=== PATIENT | female | born 1945 | race Caucasian/White ===

== ENCOUNTER 2017-10-05 12:32 | Emergency (ER) | payer OTHER, BC ==
--- NOTE | 2017-10-05 13:22 | RAD REPORT ---
EXAM DESCRIPTION: RAD - Hand Left 3 View - 10/05/2017 1:12 pm CLINICAL HISTORY: Pain and swelling. COMPARISON: None. FINDINGS: Moderate degenerative changes at the first carpometacarpal joint. Lucency is noted the bas e of the proximal first metacarpal, most compatible with fracture. Mild subluxation at the third MCP joint is suspected. No additional fracture is seen. . IMPRESSION: Acute fracture involving the base of the first metacarpal as detailed.
[2017-10-05] MEDS ORDERED: DOXYCYCLINE 100 MG CAP PO ONE (13:31)
[2017-10-05] MEDS ORDERED: TETANUS & DIPHTHERIA TOX,ADULT 0.5 ML VIAL ONE (13:33)
[2017-10-05] MEDS ORDERED: FENTANYL CITR 100 MCG/2 ML ONE (13:35)
[2017-10-05 13:42] LABS: Absolute Lymphocytes (CBC) 1.1 K/uL (0.7-4.9); Absolute Monocytes 0.5 K/uL (0.1-1.3); Absolute Neutrophil 10.5 K/uL (1.8-8.0); Basophils % 0.9 % (0-1.3); Eosinophils % 0.3 % (0-4.4); Hematocrit 40.9 % (36.0-45.0); Lymphocytes % 8.8 % (15.3-44.8); MCH 30.7 pg (27.0-35.0); MCV 93.3 fL (80-100); MPV 10.2 fL (7.6-11.3); Monocytes % 4.5 % (3.3-12.3); RBC Red Blood Cell Count 4.38 M/uL (3.86-4.86)
[2017-10-05 13:46] LABS: Potassium 3.6 mEq/L (3.6-5.0)
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
[2017-10-05 14:14] LABS: Blood Morphology Comment NOT SEEN (NOT SEEN); Platelet Estimate ADEQ; Urine White Blood Cell Casts OK
[2017-10-05 14:41] LABS: Urine Blood 2+ (NEG); Urine Glucose NEGATIVE (NEG); Urine Protein NEGATIVE (NEG); Urine Specific Gravity 1.015 (1.005-1.030)
== END 2017-10-05 14:45 | disposition home or self-care (01) ==
LOC: ER 12:32
DX: S62.524A Nondisplaced fracture of distal phalanx of right thumb, initial encounter for closed fracture (principal); V94.89XA Other water transport accident, initial encounter; Y93.89 Activity, other specified; Y92.89 Other specified places as the place of occurrence of the external cause; Z23 Encounter for immunization
CPT/HCPCS: 36415; 73130; 80048; 81003; 85025; 86850; 86900; 86901; 90714; 99284; J3010